=== PATIENT | female | born 1955 | race African-American/Black ===

== ENCOUNTER 2022-05-03 15:14 | Emergency (ER) | payer OTHER ==
--- NOTE | 2022-05-03 15:53 | RAD REPORT ---
EXAM DESCRIPTION: RAD - Chest Single View - 05/03/2022 3:41 pm CLINICAL HISTORY: CHEST PAIN Chest pain. COMPARISON: No comparisons FINDINGS: Portable technique limits examination quality. The lungs are grossly clear except for mild atelectasis in both lung bases. The heart is normal in si ze. No displaced fractures. IMPRESSION: No acute intrathoracic process suspected.
[2022-05-03 16:15] LABS: Absolute Lymphocytes (CBC) 1.9 K/uL (0.7-4.9); Hematocrit 41.8 % (36.0-45.0); Lymphocytes % 32.8 % (15.3-44.8); MCV 89.5 fL (80-100); RBC Red Blood Cell Count 4.67 M/uL (3.86-4.86)
[2022-05-03 16:16] LABS: Potassium 3.5 mmol/L (3.5-5.1); Troponin High Sensitivity 3.4 pg/mL (<58.9)
--- NOTE | 2022-05-03 16:26 | RAD REPORT ---
EXAM DESCRIPTION: CT - Head Brain Wo Cont - 05/03/2022 4:18 pm CLINICAL HISTORY: headache Headache, drowsiness COMPARISON: No comparisons TECHNIQUE: All CT scans are performed using dose optimization technique as appropriate and may inclu de automated exposure control or mA/KV adjustment according to patient size. FINDINGS: No intracranial hemorrhage, hydrocephalus or extra-axial fluid collection.Small areas of d iminished density are seen in the frontal regions of the basal ganglia, nonspecific.No areas of brain edema or evidence of midline shift. The paranasal sinuses and mastoids are clear. The calvarium is intact. IMPRESSION: No acute intracranial abnormality.
[2022-05-03] MEDS ORDERED: KETOROLAC 30 MG/ML INJ ONE (17:22)
[2022-05-03] MEDS ORDERED: NA CHLORIDE 0.9% 1,000 ML ONE (17:23)
--- NOTE | 2022-05-03 17:35 | EDPHYS ---
Physician Documentation [facility] Name: Jeramy Ramos Age: 67 yrs Sex: Female : 1955 Arrival Date: 05/03/2022 Time: 15:16 Bed 12 Private MD: ED Physician Reji Goode HPI: 05/03 17:03 This 67 yrs old Black Female presents to ER via EMS with complaints of headache. kb 17:03 The patient complains of pain to the right yarsanism and left yarsanism. The patient kb describes the headache as constant, throbbing. Onset: The symptoms/episode began/occurred 4 day(s) ago. Associated signs and symptoms: Pertinent positives: Photophobia. Severity of symptoms: At its worst the pain was moderate, in the emergency department the pain is unchanged. Headache History: The patient has had previous headaches and this one is similar to previous episodes. The symptoms are alleviated by nothing. the symptoms are aggravated by stress. The patient has experienced similar episodes in the past. The patient has not recently seen a physician. Pt reports headache for 4 days. States she had some chest pain that has resolved, dizziness "sometimes," but not recently and not since headache started, bodyaches ("that's my arthritis and gout"). States she has had similar headaches due to stress. Historical: - Allergies: 15:25 No Known Allergies; jb4 - Home Meds: 15:27 meloxicam 7.5 mg oral tab 1 tab twice a day [Active]; tamsulosin 0.4 mg oral cap 1 cap jb4 once daily [Active]; allopurinol 100 mg Oral tab 1 tab once daily [Active]; amiloride-hydrochlorothiazide 5-50 mg oral tab 1 tab once daily [Active]; Vitamin D2 1,250 mcg (50,000 unit) oral cap [Active]; - PMHx: 15:25 Bipolar disorder; Schizophrenia; jb4 - PSHx: 15:25 ; Hand surgery and foot surgery; jb4 - Immunization history:: Adult Immunizations up to date. - Social history:: Smoking status: Patient reports the use of cigarette tobacco products, denies chronic smoking, but will smoke occasionally. ROS: 17:02 Constitutional: Negative for fever, chills, and weight loss. kb 17:02 Constitutional: Positive for body aches. 17:02 Cardiovascular: Positive for chest pain. 17:02 Neuro: Positive for headache. 17:02 All other systems are negative. Exam: 17:02 Constitutional: This is a well developed, well nourished patient who is awake, alert, kb and in no acute distress. Head/Face: Normocephalic, atraumatic. Eyes: Pupils equal round and reactive to light, extra-ocular motions intact. Lids and lashes normal. Conjunctiva and sclera are non-icteric and not injected. Cornea within normal limits. Periorbital areas with no swelling, redness, or edema. ENT: Moist Mucous membranes Cardiovascular: Regular rate and rhythm with a normal S1 and S2. No gallops, murmurs, or rubs. No pulse deficits. Respiratory: Respirations even and unlabored. No increased work of breathing. Talking in full sentences Skin: Warm, dry with normal turgor. Normal color. MS/ Extremity: Pulses equal, no cyanosis. Neurovascular intact. Full, normal range of motion. Neuro: Awake and alert, GCS 15, oriented to person, place, time, and situation. Moves all extremities. Normal gait. Psych: Awake, alert, with orientation to person, place and time. Behavior, mood, and affect are within normal limits. Vital Signs: 15:23 BP 119 / 71; Pulse 92; Resp 16; Temp 97.7(TE); Pulse Ox 100% on R/A; jb4 [place] Coma Score: 17:02 Eye Response: spontaneous(4). Verbal Response: oriented(5). Motor Response: obeys kb commands(6). Total: 15. MDM: 15:17 Patient medically screened. kb 17:02 Data reviewed: vital signs, nurses notes. Data interpreted: Pulse oximetry: on room air kb is 100 %. Interpretation: normal. 17:34 Counseling: I had a detailed discussion with the patient and/or guardian regarding: the kb historical points, exam findings, and any diagnostic results supporting the discharge/admit diagnosis, lab results, radiology results, the need for outpatient follow up, a family practitioner, to return to the emergency department if symptoms worsen or persist or if there are any questions or concerns that arise at home. 17:40 ED course: Pt reports her headache is gone and she wants to go home. kb 05/03 15:27 Order name: Basic Metabolic Panel; Complete Time: 16:18 kb 05/03 15:27 Order name: CBC with Diff; Complete Time: 16:18 kb 05/03 15:27 Order name: Troponin HS; Complete Time: 16:18 kb 05/03 15:27 Order name: XRAY Chest (1 view); Complete Time: 15:59 kb 05/03 15:27 Order name: CT Head Brain wo Cont; Complete Time: 16:52 kb 05/03 15:43 Order name: COVID-19 SARS RT PCR (Document "Date of Onset" if Symptomatic); Complete kb Time: 17:13 05/03 15:27 Order name: EKG; Complete Time: 15:28 kb 05/03 15:27 Order name: Cardiac monitoring; Complete Time: 15:40 kb 05/03 15:27 Order name: EKG - Nurse/Tech; Complete Time: 15:40 kb 05/03 15:27 Order name: IV Saline Lock; Complete Time: 15:54 kb 05/03 15:27 Order name: Labs collected and sent; Complete Time: 15:54 kb 05/03 15:57 Order name: Diet Regular; Complete Time: 15:57 iw 05/03 15:27 Order name: O2 Per Protocol; Complete Time: 15:40 kb 05/03 15:27 Order name: O2 Sat Monitoring; Complete Time: 15:40 kb Administered Medications: 18:01 Discontinued: NS 0.9% 1000 ml IV at 1000 ml once iw 17:34 Drug: Ketorolac 15 mg Route: IVP; Site: right antecubital; iw 18:01 Follow up: Response: No adverse reaction iw 17:34 Drug: NS 0.9% 1000 ml Route: IV; Rate: 1000 ml; Site: right antecubital; iw Disposition: 18:29 Co-signature as Attending Physician, Reji Goode MD. rn Disposition Summary: 05/03/22 17:34 Discharge Ordered Location: Home kb Condition: Stable kb Diagnosis - Headache kb Followup: kb - With: Emergency Department - When: As needed - Reason: Worsening of condition Followup: kb - With: Private Physician - When: 2 - 3 days - Reason: Recheck today's complaints, Continuance of care, Re-evaluation by your physician Discharge Instructions: - Discharge Summary Sheet kb - General Headache Without Cause, Inlo-lh-Unno kb Forms: - Medication Reconciliation Form kb - Thank You Letter kb - Antibiotic Education kb - Prescription Opioid Use kb Signatures: Dispatcher [employer] Daphne Sher, STEPHEN-C STEPHEN-Keyana Lion, RN Reji Coleman MD MD rn Bryson, James, RN RN jb4
--- NOTE | 2022-05-03 17:35 | ER ---
Nurse's Notes [facility] Name: Jeramy Ramos Age: 67 yrs Sex: Female : 1955 Arrival Date: 05/03/2022 Time: 15:16 Bed 12 Private MD: Diagnosis: Headache Presentation: 05/03 15:23 Chief complaint: Patient states: My chest was hurting earlier. I have a headache and jb4 body aches. Just wont go away. EMS states: The pt had called out for a headache that had been going on for the past couple of days. BGL 130 Stable VS. Coronavirus screen: At this time, the client does not indicate any symptoms associated with coronavirus-19. Ebola Screen: No symptoms or risks identified at this time. Initial Sepsis Screen: Does the patient meet any 2 criteria? HR > 90 bpm. Yes Does the patient have a suspected source of infection? No. Patient's initial sepsis screen is negative. Risk Assessment: Do you want to hurt yourself or someone else? Patient reports no desire to harm self or others. Onset of symptoms was May 03, 2022. Transition of care: patient was not received from another setting of care. 15:23 Method Of Arrival: EMS: [facility] jb4 15:23 Acuity: CARLI 3 jb4 Triage Assessment: 17:30 General: Appears in no apparent distress. Behavior is cooperative. iw Historical: - Allergies: 15:25 No Known Allergies; jb4 - Home Meds: 15:27 meloxicam 7.5 mg oral tab 1 tab twice a day [Active]; tamsulosin 0.4 mg oral cap 1 cap jb4 once daily [Active]; allopurinol 100 mg Oral tab 1 tab once daily [Active]; amiloride-hydrochlorothiazide 5-50 mg oral tab 1 tab once daily [Active]; Vitamin D2 1,250 mcg (50,000 unit) oral cap [Active]; - PMHx: 15:25 Bipolar disorder; Schizophrenia; jb4 - PSHx: 15:25 ; Hand surgery and foot surgery; jb4 - Immunization history:: Adult Immunizations up to date. - Social history:: Smoking status: Patient reports the use of cigarette tobacco products, denies chronic smoking, but will smoke occasionally. Screenin:38 Abuse screen: Denies threats or abuse. Nutritional screening: No deficits noted. bh1 Tuberculosis screening: No symptoms or risk factors identified. Fall Risk None identified. Assessment: 16:38 Reassessment: No changes from previously documented assessment. Pain: Noted to be bh1 resting. 17:30 Reassessment: pt sitting up in bed eating, states she does not have a headache anymore, iw states she wants to call her ride to come pick her up. 17:35 Reassessment: i allowed pt to use my phone, she left a message on her sons phone, wants iw her IV taken out and wants to go smoke a cigarette. Vital Signs: 15:23 BP 119 / 71; Pulse 92; Resp 16; Temp 97.7(TE); Pulse Ox 100% on R/A; jb4 [place] Coma Score: 17:02 Eye Response: spontaneous(4). Verbal Response: oriented(5). Motor Response: obeys kb commands(6). Total: 15. ED Course: 15:16 Patient arrived in ED. as 15:16 Daphne Blevins [facility]C [facility]. kb 15:16 Reji Goode MD is Attending Physician. kb 15:25 Triage completed. jb4 15:27 Arm band placed on right wrist. jb4 15:40 Bed in low position. Call light in reach. Side rails up X 1. Door closed. Noise mb7 minimized. Warm blanket given. Client placed on continuous cardiac and pulse oximetry monitoring. NIBP monitoring applied. satellite project site monitor on. Pulse ox on. 15:40 EKG done, by ED staff, reviewed by Daphne RAMIREZ. mb7 15:43 XRAY Chest (1 view) In Process Unspecified. EDMS 15:50 No apparent distress. Resting quietly. Awaiting lab results, Awaiting radiology results.bh1 15:50 Inserted saline lock: 20 gauge in right antecubital area, using aseptic technique. 1 Blood collected. 16:19 CT Head Brain wo Cont In Process Unspecified. EDMS 16:38 Echo Treviño, RN is Primary Nurse. bh1 16:38 No provider procedures requiring assistance completed. bh1 17:50 IV discontinued, intact, bleeding controlled, No redness/swelling at site. Pressure iw dressing applied. Administered Medications: 18:01 Discontinued: NS 0.9% 1000 ml IV at 1000 ml once iw 17:34 Drug: Ketorolac 15 mg Route: IVP; Site: right antecubital; iw 18:01 Follow up: Response: No adverse reaction iw 17:34 Drug: NS 0.9% 1000 ml Route: IV; Rate: 1000 ml; Site: right antecubital; iw Medication: 16:38 VIS not applicable for this client. bh1 Outcome: 17:34 Discharge ordered by MD. reyes 17:55 Discharged to home ambulatory. iw 17:55 Condition: good 17:55 Discharge instructions given to patient, Instructed on discharge instructions, follow up and referral plans. Demonstrated understanding of instructions, follow-up care. 17:56 Patient left the ED. iw Signatures: Dispatcher [employer] EDMS Daphne Blevins, TRAP PULLER-C TRAP PULLER-Ludmila Garland Irene, RN ANA Grady De La Vega RN RN jb4 Nicole Perera Barbara RN RN bh1
[2022-05-03 18:22] VITALS: BP 119/71; TEMP 97.7; O2SAT 100
--- NOTE | 2022-05-04 13:48 | EKG ---
Test Date: 2022-05-03 Test Time: 15:39:41 [place] Landscape Architect: MB MEASUREMENT RESULTS: Intervals: Rate: 81 PA: 154 QRSD: 130 QT: 422 QTc: 490 [place]: P: 62 PA: 154 QRS: 20 T: 58 INTERPRETIVE STATEMENTS: Normal sinus rhythm Right bundle branch block Abnormal ECG No previous ECG available for comparison Electronically Signed On 05-04-22 13:45:49 CDT by Chepe Schulz
== END 2022-05-03 17:56 | disposition home or self-care (01) ==
LOC: ER 15:14
DX: R51.9 Headache, unspecified (principal); R07.9 Chest pain, unspecified; Z20.822 Contact with and (suspected) exposure to COVID-19; F20.9 Schizophrenia, unspecified; F17.210 Nicotine dependence, cigarettes, uncomplicated
CPT/HCPCS: 93005; 85025; 80048; 36415; 84484; 70450; 71045; U0003; J7030; 96374; 99285